=== PATIENT | female | born 1975 | race African-American/Black ===

== ENCOUNTER 2021-06-11 15:59 | Outpatient (REF) | payer MEDICAID, SELFPAY ==
--- NOTE | ~2021-06-11 | XR_ITS ---
EXAMINATION: XR SHOULDER, LEFT CLINICAL INFORMATION: Pain in the left shoulder COMPARISON: None TECHNIQUE: AP external rotation, Grashey, scapular Y, and axillary views of the left shoulder. FINDINGS: The bones and soft tissues are normal. No fracture. Glenohumeral and acromioclavicular alignment is anatomic with normal joint space. No abnormal soft tissue calcifications. XR/XR shoulder LT min 2V IMPRESSION: Normal left shoulder.
== END 2021-06-11 16:00 | disposition home or self-care (01) ==
LOC: HO.XRAY 15:59
PROVIDERS: PCP Registered Nurse Community Health; Visit Provider Registered Nurse Community Health
DX: M25.512 Pain in left shoulder (principal)
CPT/HCPCS: 73030

== ENCOUNTER 2021-07-19 11:06 | Outpatient (REF) | payer MEDICAID, SELFPAY ==
--- NOTE | ~2021-07-19 | MM_ITS ---
EXAMINATION: MM SCREENING DIGITAL BREAST TOMOSYNTHESIS, BILATERAL CLINICAL INFORMATION: Screening. Asymptomatic. The lifetime risk of breast cancer based on the Tyrer-Cuzick Model is 8%. COMPARISON: Mammography: 12/12/2019, 12/06/2018, 09/07/2017 TECHNIQUE: Digital breast tomosynthesis is performed in both the craniocaudal and mediolateral oblique views along with computer-aided detection (CAD). Synthesized 2D images are generated from the tomosynthesis. Additional left exaggerated CC and right MLO views are provided. FINDINGS: There are scattered areas of fibroglandular density (ACR BI-RADS breast composition Category b). There are no significant masses, abnormal calcifications, or other abnormalities. Parenchymal pattern is similar to prior studies. There is no developing density or architectural abnormality. The axilla and skin contours are unremarkable. No significant changes. MM/MM tomosynthesis screening BI IMPRESSION: No mammographic evidence of malignancy. ASSESSMENT: BI-RADS 1: Negative RECOMMENDATION: Routine annual mammography screening. This patient's information was entered into a reminder system with a target due date for their next mammogram.
== END 2021-07-19 11:07 | disposition home or self-care (01) ==
LOC: HO.MAMMO 11:06
PROVIDERS: PCP Registered Nurse Community Health; Visit Provider Registered Nurse Community Health
DX: Z12.31 Encounter for screening mammogram for malignant neoplasm of breast (principal)
CPT/HCPCS: 77063; 77067

== ENCOUNTER 2021-08-25 14:00 | Outpatient (RCR) | payer OTHER, SELFPAY | END 2021-09-16 10:16 | disposition home or self-care (01) | LOC: HO.PT 14:00 | PROVIDERS: PCP Registered Nurse Community Health; Visit Provider Registered Nurse Community Health | DX: M25.512 Pain in left shoulder (principal) | CPT/HCPCS: 97110; 97140; 97161 ==

== ENCOUNTER 2021-10-15 10:47 | Outpatient (REF) | payer OTHER, MEDICAID, SELFPAY ==
--- NOTE | ~2021-10-15 | MR_ITS ---
EXAMINATION: MRI LEFT SHOULDER WITHOUT CONTRAST CLINICAL INFORMATION: [facility] – [place]. COMPARISON: X-ray the left shoulder May 2021. TECHNIQUE: MRI of the left shoulder was performed on a high-field 1.5 Janey MRI scanner. FINDINGS: ROTATOR CUFF: Normal. BICEPS TENDON: Normal. CORACOACROMIAL ARCH: Normal. BURSA: Trace fluid in the subacromial subdeltoid bursa. LABRUM/CAPSULE: Normal. GLENOHUMERAL JOINT: Articular cartilage is normal. No effusion. Minimal enthesopathic cyst in the lesser tuberosity. MR/MR shoulder LT wo con IMPRESSION: Trace fluid in the subacromial subdeltoid bursa compatible with a mild bursitis.
== END 2021-10-15 10:48 | disposition home or self-care (01) ==
LOC: HO.MRI 10:47
PROVIDERS: Visit Provider Registered Nurse Community Health
DX: M25.512 Pain in left shoulder (principal)
CPT/HCPCS: 73221

== ENCOUNTER 2021-11-17 13:00 | Outpatient (RCR) | payer OTHER, MEDICAID, SELFPAY | END 2021-12-07 09:47 | disposition home or self-care (01) | LOC: HO.PT 13:00 | PROVIDERS: Visit Provider Registered Nurse Community Health | DX: M25.512 Pain in left shoulder (principal) | CPT/HCPCS: 97110; 97140; 97161 ==

== ENCOUNTER 2021-11-24 07:19 | Outpatient (REF) | payer OTHER, MEDICAID, SELFPAY ==
--- NOTE | ~2021-11-24 | XR_ITS ---
EXAMINATION: XR SHOULDER, LEFT CLINICAL INFORMATION: Pain left shoulder. COMPARISON: None TECHNIQUE: AP external rotation, Grashey, scapular Y, and axillary views of the left shoulder. FINDINGS: There is mild reduction in the left AC joint space. The glenohumeral joint space is normal. There is no visible acute fracture, dislocation or bony erosive changes. The soft tissues are normal. XR/XR shoulder LT min 2V IMPRESSION: Mild degenerative changes left acromioclavicular joint and glenohumeral joint.
== END 2021-11-24 07:20 | disposition home or self-care (01) ==
LOC: HO.HOSX 07:19
PROVIDERS: Visit Provider Physician Assistant
DX: M75.82 Other shoulder lesions, left shoulder (principal)
CPT/HCPCS: 20610; 73030; 99202; J1040

== ENCOUNTER 2021-12-14 11:48 | Emergency (ER) | payer OTHER, SELFPAY ==
[2021-12-14 11:55] VITALS: BP 142/76; PULSE 82; RESP 18; TEMP 36.8; O2SAT 98; BMI 28.3
--- NOTE | 2021-12-14 12:00 | ED_ITS ---
HPI - Extremity Problem General Chief complaint: Extremity Problem Stated complaint: extreme pain in shoulders Time Seen by Provider: 12/14/21 11:50 Source: patient Mode of arrival: ambulatory Limitations: language barrier History of Present Illness HPI Narrative: 46-year-old female with a known left-sided tendinitis of the shoulder and bursitis here with pain in the left shoulder which is described as intermittent and sometimes radiates up her neck worsened since May but >years after a work injury. Her pain comes with sleeping on her left side, lifting and movement of her arm. Has a tingling sensation that goes down her arm. Patient has been seen by Orthopedics and had and cortisone injection on November 24. She had an MRI September 2021 which showed bursitis. Continued pain which was aggravated today by h anging up clothes at work. Takes motrin/tylenol PRN. This week has taken medication twice. None today. Waiting for orthopedics to call her back. Related Data Home Medications Medication Instructions Recorded Confirmed diclofenac sodium 1 % topical gel 2 g topical QID 11/24/21 Previous Rx's Medication Instructions Recorded ibuprofen 600 mg tablet 600 mg PO Q8H PRN pain #30 tabs 12/14/21 Allergies Allergy/AdvReac Type Severity Reaction Status Date / Time No Known Allergies Allergy Unverified 11/24/21 10:12 [No Known Allergies*] Review of Systems Review of Systems: Yes all other systems are reviewed and are negative Constitutional: Constitutional: Reports no additional constitutional complaints, Denies body ache(s), Denies chills, Denies fever(s), Denies headache(s) and Denies weakness Eyes: Eyes: Reports no additional eye complaints and Denies change in vision ENT: Reports system reviewed and no additional complaints, except as documented, Denies dizziness, Denies headache(s), Denies nasal congestion, Denies nasal discharge and Denies neck pain Cardiovascular: Cardiovascular: Reports no additional cardiovascular complaints, Denies chest pain, Denies leg edema and Denies dyspnea Respiratory: Respiratory: Reports no additional respiratory complaints, Denies cough and Denies dyspnea Gastrointestinal: Gastrointestinal: Reports no additional gastrointestinal complaints, Denies abdominal pain, Denies diarrhea, Denies nausea and Denies vomiting Genitourinary: Genitourinary: Reports no additional female genitourinary complaints and Denies urinary incontinence Musculoskeletal: Musculoskeletal: Reports no additional musculoskeletal complaints, Denies back pain, Reports arthralgias, Denies joint swelling, Reports limited range of motion, Denies neck pain, Denies numbness and Denies tingling Integumentary/Breasts: Skin/Breast: Reports system reviewed and no additional complaints, except as docu and Denies rash Neurologic: Reports system reviewed and no additional complaints, except as documented, Denies Abnormal speech present, Denies dizziness, Denies headache(s ), Denies numbness, Denies tingling and Denies weakness PMFSH Past Medical History Attestation statement: The following information was validated with the patient. Source: old records reviewed and nursing notes reviewed Surgical History H/O tubal ligation Social History Social History Patient Tobacco Use Status: Never used Tobacco Advance Directives: No Advance Directives Information Provided: No Current occupational status: employed Current occupation: [employer], rt hand Physical Exam Vital Signs: Vital Signs: Last Vital Signs Temp 98.2 F 12/14/21 11:55 Pulse 88 12/14/21 12:20 Resp 16 12/14/21 12:20 BP 142/90 H 12/14/21 12:20 Pulse Ox 97 12/14/21 12:20 O2 Del Method 12/14/21 12:20 BMI result Body Mass Index 28.3 Const: General: cooperative, healthy appearing, comfortable and no acute distress Orientation/consciousness: patient oriented x3 Limitations: no limitations HEENT: Head: Yes normal to inspection Ears: hearing grossly normal bilaterally Eyes: General: appearance normal, both eyes and all related structures Pupils: Equal, round and reactive pupils present Neck: Neck: Yes normal visual inspection Chest: Chest palpation & inspection: normal inspection of the chest Resp: Effort & Inspection: normal respiratory effort Cardio: Peripheral pulses: Peripheral pulses 2+ throughout Skin: General skin exam: no rashes or lesions noted Neuro: General: patient oriented x3, moves all extremities, no focal motor deficits and normal sensation to monofilament Cranial nerves: Yes Equal, round and reactive pupils present Cognition (Neuro): normal cognition Speech: No Abnormal speech present Gait exam (Neuro): Normal gait present Motor exam (neuro): 5/5 motor strength present throughout Sensory Exam: Normal double simultaneous stimulation for sensation Extrem: Other: Left shoulder normal to inspection. Tenderness over the bicipital groove and along the trapezium muscle into the lateral side of the neck. 5/5 LUE strength, positive Gale, Pain worsened with abduction of the limb General: Yes normal to inspection MDM - Extremity (Nontraumatic) MDM Narrative Medical decision making narrative: 46-year-old female here with acute on chronic left shoulder pain after lifting and hanging clothes today at work. Patient had recent MRI, cortisone injection but having continued pain. Waiting for call back from Orthopedics. No new injury or trauma. No need for new x-rays today. Patient is only requiring NSAID use twice in 1 week. I recommend she increase use to up to 3 times daily as needed. Recommended continue use ice and follow with Orthopedics. Reviewed worrisome signs and symptoms of when to return to the emergency department. Comfortable discharge home. Medical Records Attestation: I reviewed the patient's medical records. Lab Data Attestation: I reviewed the patient's lab results. Discharge Plan Discharge Clinical Impression: Tendonitis of left rotator cuff Patient Disposition: Home, Self-Care Instructions: Rotator Cuff Tendinitis (ED) Additional Instructions: Ice to the area gentle stretching No heavy lifting or bending Follow-up with orthopedics Prescriptions: New ibuprofen 600 mg tablet 600 mg PO Q8H PRN (Reason: pain) Qty: 30 0RF No Action diclofenac sodium 1 % gel 2 g topical QID Referrals: [facility] [Primary Care Provider] - 1 week Stand Alone Forms: Work/School Release Interventions: ED Discharge Assessment Last Done: 12/14/21 12:50 Discharge Date/Time: 12/14/21 12:50 Print Language: Congolese
[2021-12-14 12:20] VITALS: BP 142/90; PULSE 88; RESP 16; O2SAT 97
[2021-12-14] MEDS: Ibuprofen 600 MG TABLET PO (12:44)
== END 2021-12-14 12:50 | disposition home or self-care (01) ==
PROVIDERS: Emergency Provider Emergency Medicine
DX: M75.102 Unspecified rotator cuff tear or rupture of left shoulder, not specified as traumatic (principal)
CPT/HCPCS: 99283; 99284

== ENCOUNTER → 2021-12-20 12:12 | Outpatient (BNVA) | payer OTHER, SELFPAY | PROVIDERS: Visit Provider Orthopaedic Surgery | DX: M75.42 Impingement syndrome of left shoulder (principal) | CPT/HCPCS: 99212 ==

== ENCOUNTER → 2022-01-31 10:11 | Outpatient (BNVA) | payer OTHER, SELFPAY | PROVIDERS: Visit Provider Orthopaedic Surgery | DX: M75.82 Other shoulder lesions, left shoulder (principal) | CPT/HCPCS: 99212 ==

== ENCOUNTER → 2022-03-17 08:44 | Outpatient (BNVA) | payer OTHER, SELFPAY | PROVIDERS: Visit Provider Orthopaedic Surgery | DX: M75.42 Impingement syndrome of left shoulder (principal) | CPT/HCPCS: 99212 ==

== ENCOUNTER → 2022-04-14 10:15 | Outpatient (BNVA) | payer MEDICAID, SELFPAY | PROVIDERS: Visit Provider Orthopaedic Surgery | DX: M25.512 Pain in left shoulder (principal); M75.42 Impingement syndrome of left shoulder | CPT/HCPCS: 99212 ==

== ENCOUNTER 2022-05-24 11:26 | Outpatient (REF) | payer MEDICAID, SELFPAY | END 2022-05-24 11:27 | disposition home or self-care (01) | LOC: HO.LNP 11:26 | PROVIDERS: PCP Registered Nurse; Visit Provider Obstetrics & Gynecology | DX: N88.9 Noninflammatory disorder of cervix uteri, unspecified (principal); Z32.02 Encounter for pregnancy test, result negative | CPT/HCPCS: 57500; 81025; 88300; 88305; 99202 ==

== ENCOUNTER 2022-06-29 12:54 | Outpatient (REF) | payer MEDICAID, SELFPAY ==
[2022-06-29 14:16] LABS: Hematocrit 39.2 % (37.0-47.0); Hemoglobin 12.4 g/dl (12.0-16.0); Mean Corpuscular HGB Conc 31.6 g/dl (31.0-35.0); Mean Corpuscular Hemoglobin 26.4 pg (27.0-33.0); Mean Corpuscular Volume 83.4 fL (80.0-98.0); Mean Platelet Volume 10.9 fL (9.4-12.3); Platelet Count 169 X10*3/uL (160-400); Red Cell Distribution Width 14.8 % (11.0-16.0); White Blood Count 4.8 X10*3/uL (4.8-10.8)
[2022-06-29 14:52] LABS: HCG Quantitative < 2 mIU/mL; TSH reflex Free T4 1.09 uIU/mL (0.32-4.0)
== END 2022-06-29 12:55 | disposition home or self-care (01) ==
LOC: HO.LAB 12:54
PROVIDERS: PCP Registered Nurse; Visit Provider Obstetrics & Gynecology
DX: N88.9 Noninflammatory disorder of cervix uteri, unspecified (principal); D25.9 Leiomyoma of uterus, unspecified; N92.0 Excessive and frequent menstruation with regular cycle
CPT/HCPCS: 36415; 84443; 84702; 85027; 99212

== ENCOUNTER 2022-07-06 09:33 | Outpatient (REF) | payer MEDICAID, SELFPAY ==
--- NOTE | ~2022-07-06 | MR_ITS ---
EXAMINATION: MR CERVICAL SPINE WITHOUT CONTRAST CLINICAL INFORMATION: Left upper arm pain COMPARISON: None TECHNIQUE: MRI of the cervical spine was obtained using routine sequences without contrast. FINDINGS: Normal anatomic alignment. No suspicious marrow signal or focal osseous lesion. The vertebral body heights are maintained. The intervertebral discs are of normal height and signal. The cervical spinal cord is normal in caliber and signal Limited evaluation of the soft tissues of the neck without demonstrated abnormalities. The flow voids of the major cervical vessels are maintained. Normal appearance of the cervicomedullary junction and visualized posterior fossa SPINAL LEVELS: C2-C3: No significant spinal canal or neural foraminal narrowing C3-C4: No significant spinal canal or neural foraminal narrowing C4-C5: Small disc protrusion. No significant spinal canal or neural foraminal narrowing C5-C6: Small disc protrusion. No significant spinal canal or neural foraminal narrowing C6-C7: No significant spinal canal or neural foraminal narrowing C7-T1: Normal. MR/MR cervical spine wo con IMPRESSION: Minimal degenerative changes of the cervical spine. No significant spinal canal or neural foraminal stenosis, cord compression, or cord signal abnormality.
== END 2022-07-06 09:34 | disposition home or self-care (01) ==
LOC: HO.MRI 09:33
PROVIDERS: PCP Registered Nurse; Visit Provider Orthopaedic Surgery
DX: M79.622 Pain in left upper arm (principal)
CPT/HCPCS: 72141

== ENCOUNTER 2022-07-15 10:58 | Outpatient (REF) | payer MEDICAID, SELFPAY ==
--- NOTE | ~2022-07-15 | US_ITS ---
EXAMINATION: US PELVIS CLINICAL INFORMATION: Uterine leiomyoma. COMPARISON: CT of the abdomen and pelvis 04/22/2019, pelvic ultrasound 04/22/2019. TECHNIQUE: Ultrasound of the pelvis is performed using both transabdominal and transvaginal transducers along with Doppler. Transvaginal imaging is performed due to inadequate visualization transabdominally. FINDINGS: UTERUS: The uterus is anteverted and retroflexed measuring 8.9 x 5.1 x 6.0 cm. The double wall endometrial thickness is 0.6 mm. A tiny amount of fluid is seen in the endometrial canal along with at least one punctate 1 mm echogenic area suggestive of calcification. At the time of the prior ultrasound, a 9 mm polypoid mass was noted in the endometrial canal which is not seen. The uterus is smooth in contour and has normal myometrial echogenicity. Again seen is a uterine fibroid in the left in the lower uterine segment measuring 4.2 x 3.5 x 4.1 cm (previously 3.4 x 2.8 x 3.4 cm). Nabothian cysts are present in the cervix. ADNEXA: Both ovaries are visualized. There is normal color flow to the adnexa. There is no ovarian torsion. There is no pelvic ascites or fluid collection. Right ovary measures 2.7 x 1.7 x 1.2 cm for a volume of 2.9 mL. Left ovary measures 2.7 x 1.6 x 1.4 cm for a volume of 3.2 mL, which includes a 0.9 cm corpus luteum cyst. A small amount of free fluid is present in the pelvis. US/US pelvic and transvaginal IMPRESSION: Uterine fibroid has increased in size. Small amount of fluid in the endometrial canal with a single punctate calcification. Previously seen endometrial polyp is not identified.
== END 2022-07-15 10:59 | disposition home or self-care (01) ==
LOC: HO.US 10:58
PROVIDERS: Visit Provider Obstetrics & Gynecology
DX: D25.9 Leiomyoma of uterus, unspecified (principal)
CPT/HCPCS: 76830; 76856

== ENCOUNTER 2022-07-25 08:56 | Outpatient (REF) | payer MEDICAID, SELFPAY ==
--- NOTE | ~2022-07-25 | MM_ITS ---
EXAMINATION: MM SCREENING DIGITAL BREAST TOMOSYNTHESIS, BILATERAL CLINICAL INFORMATION: Screening. Asymptomatic. The lifetime risk of breast cancer based on the Tyrer-Cuzick Model is 7%. COMPARISON: Mammography: 07/19/2021, 12/12/2019, 12/06/2018 TECHNIQUE: Digital breast tomosynthesis is performed in both the craniocaudal and mediolateral oblique views along with computer-aided detection (CAD). Synthesized 2D images are generated from the tomosynthesis. FINDINGS: There are scattered areas of fibroglandular density (ACR BI-RADS breast composition Category b). There are no significant masses, abnormal calcifications, or other abnormalities. No architectural abnormality or developing density or significant change from prior studies. MM/MM tomosynthesis screening BI IMPRESSION: No mammographic evidence of malignancy. ASSESSMENT: BI-RADS 1: Negative RECOMMENDATION: Routine annual mammography screening. This patient's information was entered into a reminder system with a target due date for their next mammogram.
== END 2022-07-25 08:57 | disposition home or self-care (01) ==
LOC: HO.MAMMO 08:56
PROVIDERS: PCP Registered Nurse Community Health; Visit Provider Registered Nurse Community Health
DX: Z12.31 Encounter for screening mammogram for malignant neoplasm of breast (principal); M25.512 Pain in left shoulder; M75.42 Impingement syndrome of left shoulder
CPT/HCPCS: 77063; 77067; 99212

== ENCOUNTER 2022-09-06 11:40 | Outpatient (REF) | payer MEDICAID, SELFPAY ==
[2022-09-06 18:40] LABS: CT PCR NOT DETECTED (Not Detect.); NG PCR NOT DETECTED (Not Detect.)
== END 2022-09-06 11:41 | disposition home or self-care (01) ==
LOC: HO.LNP 11:40
PROVIDERS: PCP Registered Nurse; Visit Provider Obstetrics & Gynecology
DX: N93.9 Abnormal uterine and vaginal bleeding, unspecified (principal)
CPT/HCPCS: 0353U; 58100; 88305; 99212

== ENCOUNTER → 2022-09-14 12:39 | Outpatient (BNVA) | payer MEDICAID, SELFPAY | PROVIDERS: PCP Registered Nurse; Visit Provider Obstetrics & Gynecology | DX: N93.9 Abnormal uterine and vaginal bleeding, unspecified (principal); D25.9 Leiomyoma of uterus, unspecified | CPT/HCPCS: 99212 ==

== ENCOUNTER 2022-09-16 12:18 | Day surgery (SDC) | payer MEDICAID, SELFPAY ==
--- NOTE | 2022-09-15 12:02 | HO.ANESPROP2 ---
HPI - Anesthesia Eval Consult details Narrative: 47yo F for D&C Hysteroscopy , possible myomectomy/polypectomy PMFSH Active Problems Active Problems: All Active Problems (Updated 09/14/22 @ 12:54 by Yogi Nelson MD) Other chronic pain (Acute) Abnormal uterine bleeding (AUB) (Acute) Uterine myoma (Acute) Left upper arm pain (Acute) Cervical lesion (Acute) Left shoulder pain (Acute) Rotator cuff impingement syndrome of left shoulder (Acute) Tendonitis of left rotator cuff (Acute) Surgical History Surgical History H/O tubal ligation Social History Social History Household Members: Spouse and Children Housing: House Alcohol intake: never Patient Tobacco Use Status: Never used Tobacco service: No Current occupational status: employed Current occupation: [employer], rt hand Sexual orientation: Straight/Heterosexual Gender identity: Female Meds Allergies Allergy/AdvReac Type Severity Reaction Status Date / Time No Known Allergies Allergy Verified 09/16/22 12:29 [No Known Allergies*] Home Medications Medication Instructions Recorded Confirmed Last Taken Type diclofenac sodium 1 % topical gel 2 g topical QID 11/24/21 09/16/22 Unknown History Tylenol 09/16/22 09/16/22 Unknown History Exam Exam Date and Time: September 15, 2022 1202 Assessment and Plan Assessment Anesthesia Assessment: Chart Reviewed
[2022-09-16 12:43] LABS: UPreg QC Valid YES; Urine Pregnancy NEGATIVE (NEGATIVE)
[2022-09-16 12:45] VITALS: BP 133/81; PULSE 90; RESP 16; TEMP 36.4; O2SAT 100; BMI 29.9
--- NOTE | 2022-09-16 12:52 | P.CONAN_ITS ---
[facility] Active Problems Active Problems: All Active Problems (Updated 09/14/22 @ 12:54 by Yogi Nelson MD) Other chronic pain (Acute) Abnormal uterine bleeding (AUB) (Acute) Uterine myoma (Acute) Left upper arm pain (Acute) Cervical lesion (Acute) Left shoulder pain (Acute) Rotator cuff impingement syndrome of left shoulder (Acute) Tendonitis of left rotator cuff (Acute) Family History Family history of problems with anesthesia: No Surgical History Surgical History H/O tubal ligation History of Problems with Anesthesia: No Social History Social History Household Members: Spouse and Children Housing: House Alcohol intake: never Patient Tobacco Use Status: Never used Tobacco Use of substances other than those prescribed or required for medical reasons: No Are you DNR?: No Advance Directives: No Advance Directives Information Provided: Yes service: No Current occupational status: employed Current occupation: [employer], rt hand Sexual orientation: Straight/Heterosexual Gender identity: Female Meds Allergies Allergy/AdvReac Type Severity Reaction Status Date / Time No Known Allergies Allergy Verified 09/16/22 12:29 [No Known Allergies*] Active Medications: Current Medications Lactated Ringer's (Lr) 1,000 mls @ 100 mls/hr IVCONT .Q10H [facility] Home Medications Medication Instructions Recorded Confirmed Last Taken Type diclofenac sodium 1 % topical gel 2 g topical QID 11/24/21 Unknown History Tylenol 09/16/22 09/16/22 Unknown History Exam Exam Date and Time: September 16, 2022 125 Height,Weight and Vital Signs: Height 5 ft 4 in Weight 67.132 kg Last Vital Signs Temp 97.6 F 09/16/22 12:45 Pulse 90 09/16/22 12:45 Resp 16 09/16/22 12:45 BP 133/81 09/16/22 12:45 Pulse Ox 100 09/16/22 12:45 O2 Del Method Room Air 09/16/22 12:45 Pertinent Lab Results Pertinent Lab Results: Laboratory Tests 09/16/22 12:30 Urine Test NEGATIVE Airway Mallampati Class: II TM Dist: >3cm Neck ROM: Full Assessment and Plan Assessment Anesthesia Assessment: Anesthesia Plan Discussed and Chart Reviewed Final Anesthetic Review Family History of Problems with Anesthesia: No History of Problems with Anesthesia: No NPO: Yes ASA Class: II Final Preanesthetic Review: No Changes in Pt Med Stat, Meds/Allgs Chart Revie wed, Consent Obtained/Reviewed and Anes Risks/Benef Reviewed Patient Risk: Low Procedure Risk: Low Anesthetic Plan Anesthetic Plan: GA Disposition: Standard PACU
[2022-09-16] MEDS: Lactated Ringers 1,000 ML 100 ML IVCONT (13:01)
--- NOTE | 2022-09-16 13:14 | MHC.SHP ---
Pre-Procedural Eval Section A Date of Service: 09/16/22 The patient is an INPATIENT: No Changes since office visit: No Cold of Flu in the past 2 weeks, No New Medical Problems, No Changes in Medication and No Patient answered all questions The History & Physical has been completed within 30 days and I have reviewed it.: Yes Section B Chief Complaint: Abnormal uterine and vaginal bleeding, unspecified Allergies: Allergies Allergy/AdvReac Type Severity Reaction Status Date / Time No Known Allergies Allergy Verified 09/16/22 12:29 [No Known Allergies*] Plan Diagnosis/Plan: Unchanged I have reviewed the history and physical and performed a pertinent physical examination on my patient. No changes have occurred unless specified. Time Spent With Patient Time: Total time managing care of this patient today ____ minutes.
--- NOTE | 2022-09-16 13:55 | P.BOP_ITS ---
Brief Operative Note Date of Service: 09/16/22 Pre-op diagnosis: Fragment of Endometrial polyp on EMB pathology Post-op diagnosis: other (Normal endometrial cavity with no evidence of pathology) Procedure: Hysteroscopy D&C Surgeon: Yogi Nelson MD Anesthesia: GLMA Was an Salesperson Neckties used for this Procedure?: No Estimated blood loss (mL): 0 Pathology: other (Endometrial Scrapping.) Condition: stable Disposition: PACU
--- NOTE | 2022-09-16 13:56 | W.PM.OPN ---
Operative Note Operative Note Date of Service: 09/16/22 Narrative: Preop Diagnosis: Fragments of endometrial polyp on EMB pathology Operation: Diagnostic Hysteroscopy, Dilataion & Curettage Post Op Diagnosis: Normal endometrial and endocervical cavity, no evidence of pathology QBL: Minimal Anesthesia: GLMA Surgeon: Yogi Nelson MD Timber Harvester Operator: None Complication: None Pathology: Endometrial Scrapings Procedure: The patient was put in the dorsal lithotomy position, scrubbed, and draped in the usual manner. A sterile speculum was inserted in the patient's vagina. The anterior lip of the cervix was grasped with a single tooth tenaculum. The cervix was dilated up to 5 mm, then the scope was inserted in the patient's uterus. Inspection revealed normal endocervical & endometrial cavity with no evidence of pathology. The scope was taken out of the uterine cavity , then sharp curetting was carried on with no complications. At the end of the procedure, all instruments were taken out of the patient uterine and vaginal cavity. The single tooth tenaculum was removed and homeostasis was assured using pressure. The patient tolerated the procedure well and was transferred to the PACU in a stable condition.
[2022-09-16 14:01] VITALS: BP 131/82; PULSE 105; RESP 20; TEMP 36.4; O2SAT 98
[2022-09-16 14:06] VITALS: BP 131/62; PULSE 90; RESP 20; O2SAT 100
[2022-09-16 14:11] VITALS: BP 119/72; PULSE 96; RESP 20; O2SAT 98
[2022-09-16 14:16] VITALS: BP 121/81; PULSE 85; RESP 16; O2SAT 100
[2022-09-16] MEDS: Acetaminophen 325 MG TABLET 650 MG PO (14:26)
[2022-09-16 14:31] VITALS: BP 125/79; PULSE 86; RESP 18; TEMP 36.2; O2SAT 100
== END 2022-09-16 15:07 | disposition home or self-care (01) ==
PROVIDERS: Visit Provider Obstetrics & Gynecology
PROC: 0UDB8ZZ Extraction of Endometrium, Via Natural or Artificial Opening Endoscopic (ICD-10-PCS; CPT 58558; principal; 2022-09-16 14:20)
DX: N93.9 Abnormal uterine and vaginal bleeding, unspecified (principal); D25.9 Leiomyoma of uterus, unspecified; N71.9 Inflammatory disease of uterus, unspecified; Z98.51 Tubal ligation status
CPT/HCPCS: 58558; 81025; 88305; J1100; J1885; J2250; J2405; J3010

== ENCOUNTER → 2022-10-05 13:49 | Outpatient (BNVA) | payer MEDICAID, SELFPAY | PROVIDERS: Visit Provider Obstetrics & Gynecology | DX: N93.9 Abnormal uterine and vaginal bleeding, unspecified (principal) | CPT/HCPCS: 99212 ==

== ENCOUNTER → 2022-10-19 11:52 | Outpatient (BNVA) | payer MEDICAID, SELFPAY | PROVIDERS: Visit Provider Nurse Practitioner Family | DX: Z12.11 Encounter for screening for malignant neoplasm of colon (principal) | CPT/HCPCS: 99202 ==

== ENCOUNTER 2022-11-11 13:00 | Outpatient (RCR) | payer MEDICAID, SELFPAY ==
--- NOTE | 2022-09-26 13:56 | MHC.PT.EP ---
[facility] [place] Office [place] Office [place] Office [address] Ofelia Tristan [address] [phone] F: [phone] F: [phone] F: [phone] F: [phone] Physical Therapy Plan of Care Date of Evaluation: Date of Surgery: NA Diagnosis: Pain in L shoulder Assessment: Angela is a 47 year old female who is referred to PT for pain in L shoulder . She reports of having pain in L shoulder for about 2 years. She had an initial trauma about 5 years back but her symptoms were better. They returned about 2 years back and she was in PT 1 year back with min improvement. She has returned to PT as her symptoms are worse. On PT examination she presents with 8/10 pain in over L supraspinous fossa with over head activities and work activities like folding clothes and stocking them, TTP over L supraspinous fossa, decreased shoulder ROM, decreased shoulder and scap strength, and altered posture.She lives with her family and is independent with ADLS however has pain with sweeping, combing hair with L UE and reaching over head. 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 She would benefit from skilled PT to address the aforementioned impairments and improve tolerance to functional activities. Frequency and Duration: The patient will be seen 2/week for 4 weeks Short Term Goals: 1. Pt will have 50% decrease in pain which will enable her to comb her hair without pain in 2 weeks. 2. Pt will be able to move trunk through all planes of motion without pain which will enable her to reach over head without pain in 3 weeks. Senior Living Goals: 1. Pt will present with increase in muscle strength by 1 grade which will enable her to carry and lift weights and fold clothes without pain in 5 weeks. 2. Pt will be independent with all HEP for symptom management and maintenance following d/c in 5 weeks. Treatment Plan: Modalities to reduce pain, spasms and effusion. Manual therapy to restore motion and function. Therapeutic exercise to improve strength and flexibility. Neuromuscular re-education for posture and balance. Therapeutic activities to return to functional activities of daily living. Electronically signed by: Emeli Cole, PT DPT Please sign and return to therapist. Thank you for your referral.
--- NOTE | 2022-11-23 09:39 | MHC.PT.DC ---
[facility] [place] Office [place] Office [place] Office [address] Ofelia Tristan [address] [phone] F: [phone] F: [phone] F: [phone] F: [phone] Physical Therapy Discharge Report Diagnosis: Pain in L shoulder Date of Surgery: NA Date of Evaluation: 09/26/22 Date of Discharge: 11/23/22 Treatments to Date: 9 Cancellations to Date: 0 No Shows to Date: 0 Discharge Status: Achieved Goals Improved Function Independent with HEP Discharge Summary: Angela completed 9 PT visits. She has achieved all goals set for her and is independent with HEP. She is therefore being d/c from PT. Electronically signed by: Emeli Galvan PT DPT Please sign and return to therapist. Thank you for your referral.
== END 2022-11-23 09:40 | disposition home or self-care (01) ==
LOC: HO.PT 13:00
PROVIDERS: PCP Registered Nurse; Visit Provider Orthopaedic Surgery
DX: M25.512 Pain in left shoulder (principal)
CPT/HCPCS: 97035; 97110; 97112; 97140; 97161

== ENCOUNTER 2023-07-31 09:38 | Emergency (ER) | payer MEDICAID, SELFPAY ==
[2023-07-31 09:49] VITALS: BP 161/86; PULSE 81; RESP 18; TEMP 36.3; O2SAT 98; BMI 31.7
--- NOTE | 2023-07-31 10:30 | PC.NURSE ---
Pt is a&ox4 coming in with right side hip pain that started last night, denies injury or fall. Pt limping to bedside.
--- NOTE | 2023-07-31 11:04 | ED_ITS ---
HPI - Extremity Injury (Lower) General Chief Complaint: Extremity Injury, Lower Stated Complaint: R leg pain-nerve pain? Time Seen by Provider: 07/31/23 10:35 Source: patient, RN notes reviewed and old records reviewed Mode of arrival: ambulatory History of Present Illness HPI Narrative: 48-year-old female with a past medical history of abnormal uterine bleeding, tendinitis, presenting to the ED complaining of right upper leg/inner thigh pain since yesterday. Reports pain worse with movement and palpation. Denies known injury/trauma or fall, heavy lifting, numbness/tingling, weakness, continence/retention, hematuria, vaginal bleeding/discharge, abdominal pain Related Data Home Medications Medication Instructions Recorded Confirmed Tylenol 09/16/22 09/16/22 Previous Rx's Medication Instructions Recorded bisacodyl 5 mg tablet,delayed 10 mg (2 x 5 mg) PO ONCE 1 day #2 10/19/22 release (Dulcolax (bisacodyl)) tabs polyethylene glycol 3350 17 238 g PO ONCE #238 grams 10/19/22 gram/dose oral powder (Miralax) acetaminophen 500 mg tablet 500 mg PO Q6H PRN fever or pain 07/31/23 (Tylenol Extra Strength) #14 tabs cyclobenzaprine 5 mg tablet 5 mg PO Q8H PRN pain (scale score 07/31/23 7-10) 5 days #14 tabs lidocaine 5 % topical patch 1 patch topical DAILY PRN pain #30 07/31/23 (Lidoderm) ea naproxen 500 mg tablet 500 mg PO BID PRN pain 10 days #20 07/31/23 tabs Allergies Allergy/AdvReac Type Severity Reaction Status Date / Time No Known Allergies Allergy Verified 07/31/23 09:51 [No Known Allergies*] Review of Systems Review of Systems: Constitutional: No Fever, No Chills ENT/Mouth: No Ear Pain, No Nasal Congestion, No sore throat Cardiovascular: No Chest Pain, No SOB Respiratory: No Cough Gastrointestinal: No Nausea, No Vomiting, No Abdominal pain Genitourinary: No Dysuria, No Urinary Frequency, No Hematuria, No Urinary Incontinence/retention, No Flank Pain Musculoskeletal:+ joint pain, No Myalgias, No Joint Swelling Skin: No Skin Lesions, No rash Neuro: No Weakness, No Numbness, No Paresthesias Yes all other systems are reviewed and are negative Constitutional: Constitutional: Reports as per [facility] Past Medical History Attestation statement: The following information was validated with the patient. Source: old records reviewed Medical History History of thrombocytopenia Abnormal uterine bleeding (AUB) Left shoulder pain Rotator cuff impingement syndrome of left shoulder Tendonitis of left rotator cuff Surgical History H/O tubal ligation Social History Social History Household Members: Spouse and Children Housing: House Alcohol intake: never Patient Tobacco Use Status: Never used Tobacco Smoked in Last 30 Days: No Use of substances other than those prescribed or required for medical reasons: No Advance Directives: No Patient : No service: No Current occupational status: employed Current occupation: [employer], rt hand Sexual orientation: Straight/Heterosexual Gender identity: Female Physical Exam Vital Signs: Vital Signs: Last Vital Signs Temp 97.3 F 07/31/23 09:49 Pulse 81 07/31/23 09:49 Resp 18 07/31/23 09:49 BP 161/86 H 07/31/23 09:49 Pulse Ox 98 07/31/23 09:49 O2 Del Method Room Air 07/31/23 09:49 BMI result Body Mass Index 31.7 Const: General: cooperative, healthy appearing, no acute distress, alert and awake Orientation/consciousness: patient oriented x3 Limitations: no limitations HEENT: Head: Yes normal to inspection and Yes atraumatic Ears: hearing grossly normal bilaterally General nose exam: Normal external nose present Face and sinus: Yes normal facial exam Eyes: General: appearance normal, both eyes and all related structures EOM: EOMs intact bilaterally Neck: Neck: Yes normal visual inspection and Yes no meningeal signs Resp: Effort & Inspection: normal respiratory effort and no respiratory distress Cardio: Rate: regular rate GI: Inspection: Yes normal to inspection Palpation (GI): Soft to palpation, nontender, no guarding and not rigid : General: Yes no CVA tenderness Back/Spine/Pelvis: Other: No midline cervical/thoracic/lumbar spinous tenderness/step-off or deformity. Back: no CVA tenderness Skin: Rashes: no rashes Wounds: no wounds Neuro: Other: Strength intact throughout. No saddle anesthesia. Sensation intact to light touch. Neurovascular intact distally General: patient oriented x3, tone normal, moves all extremities and no meningeal signs Cranial nerves: Yes CN's II-XII intact bilaterally Gait exam (Neuro): Normal gait present and Antalgic gait present Motor exam (neuro): 5/5 motor strength present throughout Extrem: Other: Right proximal medial thigh with reproducible tenderness. No rash/erythema or warmth. No ecchymosis. Pain elicited with external rotation of hip. N eurovascular intact distally General: Yes normal to inspection Course Course Course Narrative: -1133--UA with blood, small leuk esterase and wbc's however 6-10 epithelials, contaminated, will wait on antibiotic treatment until culture results Results discussed with patient including worrisome signs and symptoms and strict return precautions, and when to return to the emergency department. They verbalized understanding and feel safe for discharge at this time. Medications Administered Discontinued Medications Generic Name Dose Route Start Last Admin Trade Name Freq PRN Reason Stop Dose Admin Cyclobenzaprine HCl 5 mg 07/31/23 11:05 07/31/23 11:29 Cyclobenzaprine Hcl 5 Mg Tablet PO 07/31/23 11:06 5 mg ONCE ONE Administration Ketorolac Tromethamine 30 mg 07/31/23 11:05 07/31/23 11:29 Ketorolac Tromethamine 30 Mg/Ml Vial IM 07/31/23 11:06 30 mg ONCE ONE Administration Lidocaine 1 patch 07/31/23 11:05 07/31/23 11:29 Lidocaine 4 % Patch Adh..Patch TRANSDERMA 07/31/23 11:06 1 patch ONCE ONE Administration Protocol Medical Decision Making Medical Decision Making [facility] Narrative: 48-year-old female with a past medical history of abnormal uterine bleeding, tendinitis, presenting to the ED complaining of right upper leg/inner thigh pain since yesterday. On exam vital signs stable, NAD, nontoxic appearing, physical exam as noted above with reproducible right proximal medial thigh tenderness with pain elicited with external rotation. Concern for MSK pain/strain. Low suspicion for UTI/pyelo, ovarian torsion/cyst, appendicitis, no evidence of hernia Plan: UA, urine , pain control Please refer to course for remaining clinical decision making, interpretation of labs/imaging results, and discussions with consultants and/or family members. Differential Diagnosis Differential Diagnoses: The differential diagnosis associated with the presentation includes As above Admission/Observation Consideration of admission/observation: Escalation of care including admission/observation considered Lab Data MDM Lab Attestation statement: I reviewed the patient's lab results. Labs: Lab Results 07/31/23 Range/Units 11:06 Urine Color Yellow Urine Appearance Clear Urine pH 6.0 (5.0-9.0) Ur Specific [place] 1.025 (1.005-1.025) Urine Protein Negative (Neg-Trace) mg/dL Urine Glucose (UA) Negative (Negative) mg/dL Urine Ketones Trace (Negative) mg/dL Urine Blood Small (1+) H (Negative) Urine Nitrite Negative (Negative) Ur Leukocyte Esterase Small (1+) H (Negative) Urine RBC 6-10 H (0-2) /HPF Urine WBC 6-10 H (0-5) /HPF Ur Squamous Epith Cells 6-10 (0-2) /HPF Urine Bacteria Trace (None Seen) Hyaline Casts 0-2 (0-2) /LPF Urine Test NEGATIVE (NEGATIVE) Radiology Impression Discussion of test interpretation with radiology: I have reviewed the radiologist's reading. External Record Review External record reviewed: Inpatient record, Office record, Outpatient record, Prior outpatient labs, Prior outpatient radiology, Primary care record and Outside ED record Tests considered The following testing was considered but not selected: As above Prescription Management I considered prescription management with: Pain Medication Discharge Plan Discharge Clinical Impression: Groin strain Patient Disposition: Home, Self-Care Instructions: Groin Strain (ED) Additional Instructions: Please follow-up with your doctor Your pain is likely musculoskeletal Flexeril is a muscle relaxer, take at night as it makes you drowsy, do not drive, drink alcohol, or operate machinery while taking it Naproxen as an anti-inflammatory / pain medication, take with food Lidoderm patches are numbing patches, apply to painful area In addition take Tylenol at home If symptoms persist or worsen, pain becomes unbearable, you developed urinary retention or incontinence, or weakness return to the ED Por favor yanira un seguimiento con santana m?dico. Es probable que santana dolor sea musculoesquel?james. Flexeril es un relajante muscular, t?butt por la noche ya que produce somno lencia, no conduzca, madeline alcohol ni opere maquinaria mientras lo luis manuel. Naproxeno celi antiinflamatorio/analg?sico, arian con alimentos Los parches de Lidoderm son parches adormecedores, se aplican en el ?milla dolorida. Adem?s, tome Tylenol en casa. Si los s?ntomas persisten o empeoran, el dolor se vuelve insoportable, usted desarrolla retenci?n urinaria o incontinencia, o debilidad, regrese al servicio de urgencias. Prescriptions: New acetaminophen [Tylenol Extra Strength] 500 mg tablet 500 mg PO Q6H PRN (Reason: fever or pain) Qty: 14 0RF lidocaine [Lidoderm] 5 % adhesive patch,medicated 1 patch topical DAILY MDD remove after 12 hours PRN (Reason: pain) Qty: 30 0RF Rx Instructions: leave on most painful area for up to 12 hrs naproxen 500 mg tablet 500 mg PO BID PRN (Reason: pain) 10 Days Qty: 20 0RF cyclobenzaprine 5 mg tablet 5 mg PO Q8H PRN (Reason: pain (scale score 7-10)) 5 Days Qty: 14 0RF No Action Tylenol bisacodyl [Dulcolax (bisacodyl)] 5 mg tablet,delayed release (DR/EC) 10 mg PO ONCE 1 Days Qty: 2 0RF Rx Instructions: take 2 tabs at noon the day before your colonoscopy polyethylene glycol 3350 [Miralax] 17 gram/dose powder 238 g PO ONCE Qty: 238 0RF Rx Instructions: As directed by gastroenterology department at [facility] Referrals: [facility] [Primary Care Provider] - 5 days Stand Alone Forms: Work/School Release Interventions: ED Discharge Assessment Last Done: 07/31/23 11:49 Discharge Date/Time: 07/31/23 11:49 Print Language: Greenlandic
[2023-07-31 11:11] LABS: Appearance Urine Clear; Color Urine Yellow; Glucose Urine UA Negative (Negative); Leukocyte Esterase Urine Small (1+) (Negative); Nitrite Urine Negative (Negative); Specific Gravity - Urine 1.025 (1.005-1.025); UMIC TRIGGER UACC YES; Urine Blood Small (1+) (Negative); Urine Ketones Trace mg/dL (Negative); Urine Protein Negative (Neg-Trace)
[2023-07-31 11:12] LABS: UPreg QC Valid YES; Urine Pregnancy NEGATIVE (NEGATIVE)
[2023-07-31 11:13] LABS: Bacteria Urine Trace (None Seen); Hyaline Casts Urine 0-2 /LPF (0-2); UACC Culture Trigger YES
[2023-07-31] MEDS: Ketorolac Tromethamine 30 MG/ML VIAL IM (11:29)
[2023-07-31] MEDS: Cyclobenzaprine HCl 5 MG TABLET PO (11:29)
[2023-07-31] MEDS: Lidocaine 4 % Patch ADH..PATCH 1 PATCH TRANSDERMA (11:29)
== END 2023-07-31 11:49 | disposition home or self-care (01) ==
PROVIDERS: Physician Assistant; Emergency Provider Emergency Medicine
DX: S39.011A Strain of muscle, fascia and tendon of abdomen, initial encounter (principal); X58.XXXA Exposure to other specified factors, initial encounter; Y93.9 Activity, unspecified; Y92.9 Unspecified place or not applicable; Y99.8 Other external cause status; Z79.899 Other long term (current) drug therapy
CPT/HCPCS: 81001; 81025; 87086; 96372; 99284; J1885

== ENCOUNTER 2023-11-06 08:42 | Outpatient (REF) | payer MEDICAID, SELFPAY ==
--- NOTE | ~2023-11-06 | MM_ITS ---
EXAMINATION: MM DIAGNOSTIC DIGITAL BREAST TOMOSYNTHESIS, BILATERAL US BREAST LIMITED, RIGHT MAMMOGRAPHY: CLINICAL INFORMATION: Superiorly located right breast pain COMPARISON: Mammography: This study is compared with prior mammograms dating back to 2019. TECHNIQUE: Digital breast tomosynthesis is performed in both the craniocaudal and mediolateral oblique views along with computer-aided detection (CAD). Synthesized 2D images are generated from the tomosynthesis. FINDINGS: There are scattered areas of fibroglandular density (ACR BI-RADS breast composition Category b). There are no significant masses, abnormal calcifications, or other abnormalities. ULTRASOUND: CLINICAL INFORMATION: Superiorly located right breast pain. COMPARISON: None TECHNIQUE: Targeted sonographic evaluation was performed using a high frequency linear transducer. Selected archived documentation. FINDINGS: RIGHT BREAST: Sonography of the superior aspect of the right breast is normal. MM/MM tomosynthesis diagnostic BI IMPRESSION: There are no significant changes from prior study. OVERALL ASSESSMENT: Mammography: BI-RADS 1 - Negative Ultrasound: BI-RADS 1 - Negative RECOMMENDATION: 1. Patient should be managed based on the clinical impression. 2. Otherwise, routine annual screening mammography. Results were provided to the patient at time of visit by the technologist. This patient's information was entered into a reminder system with a target due date for their next mammogram.
== END 2023-11-06 08:43 | disposition home or self-care (01) ==
LOC: HO.MAMMO 08:42
PROVIDERS: PCP General Practice; Visit Provider General Practice
DX: N64.4 Mastodynia (principal)
CPT/HCPCS: 76642; 77062; 77066

== ENCOUNTER → 2023-11-06 09:00 | Outpatient (BNV) | payer MEDICAID, SELFPAY | PROVIDERS: PCP General Practice; Visit Provider Radiology Diagnostic Radiology | DX: N64.4 Mastodynia (principal) | CPT/HCPCS: 76642; 77062; 77066 ==

== ENCOUNTER 2024-03-06 10:39 | Outpatient (REF) | payer MEDICAID, SELFPAY ==
[2024-03-06 11:26] LABS: MANUAL DIFF FLAG NO
[2024-03-06 11:37] LABS: Basophils Percent Auto 0.6 % (0-2); Eosinophils Absolute Auto 0.1 X10*3/uL (0.0-0.4); Eosinophils Percent Auto 1.7 % (0-4); Estimated Average Glucose 128 mg/dL; Hemoglobin 13.7 g/dl (12.0-16.0); Hemoglobin A1c % 6.1 % (<6.0); Imm Gran Abs Auto 0.01 X10*3/uL (0.00-0.03); Imm Gran Pct Auto 0.3 % (0.0-0.4); Lymphocytes Absolute Auto 2.1 X10*3/uL (1.2-4.9); Lymphocytes Percent Auto 58.2 % (20-40); Mean Corpuscular HGB Conc 31.9 g/dl (31.0-35.0); Mean Corpuscular Hemoglobin 26.9 pg (27.0-33.0); Mean Corpuscular Volume 84.5 fL (80.0-98.0); Mean Platelet Volume 10.9 fL (9.4-12.3); Monocytes Absolute Auto 0.3 X10*3/uL (0.1-1.2); Monocytes Percent Auto 7.8 % (2-11); Neutrophils Absolute Auto 1.1 x10*3/uL (2.0-8.3); Neutrophils Percent Auto 31.4 % (45-73); Platelet Count 175 X10*3/uL (160-400); Red Blood Count 5.09 X10*6/uL (4.20-5.50); Red Cell Distribution Width 14.3 % (11.0-16.0); White Blood Count 3.6 X10*3/uL (4.8-10.8)
[2024-03-06 12:30] LABS: HBsAGNum1 0.26 S/CO (0.00-0.99); HIV AB/AG Nonreactive (Nonreactive); HIV Num 1 0.05 S/CO (0.00-0.99); Hepatitis B Core Antibody Nonreactive (Nonreactive); Hepatitis B Surface Antigen Negative (Negative); ~Hepatitis B Surface Antibody REACTIVE (Nonreactive)
[2024-03-06 12:33] LABS: Alanine Aminotransferase 21 U/L (0-31); Albumin Level 4.1 g/dL (3.5-5.0); Alkaline Phosphatase 110 U/L (39-117); Anion Gap 12 (12-20); Aspartate Amino Transferase 16 U/L (5-31); Bilirubin Total 0.5 mg/dL (0.0-1.0); Blood Urea Nitrogen 18 mg/dL (9-16); Calcium 9.9 mg/dL (8.4-10.2); Carbon Dioxide 26 mmol/L (22-29); Chloride 109 mmol/L (96-108); Cholesterol 205 mg/dL (<200); Estimated Glomerular Filt Rate > 60; Glucose Random 100 mg/dL (60-115); HDL Cholesterol 58 mg/dL (>40); LDL Cholesterol Calculated 138 mg/dL (<100); Potassium 4.3 mmol/L (3.3-5.1); Sodium 143 mmol/L (135-145); Total Protein 8.1 g/dL (6.5-8.0); Triglycerides 48 mg/dL (<150)
[2024-03-06 12:39] LABS: TSH reflex Free T4 0.92 uIU/mL (0.32-4.0)
[2024-03-06 13:29] LABS: CT PCR NOT DETECTED (Not Detect.); NG PCR NOT DETECTED (Not Detect.)
[2024-03-07 22:38] LABS: Follicle Stimulating Hormone 33.3 mIU/mL
[2024-03-08 14:43] LABS: RPR Rapid Plasma Reagin NON-REACTIVE (NON-REACTIVE)
[2024-03-09 13:43] LABS: HCV Log PCR <1.18 NOT DETECTED Log IU/mL (NOT DETECTED); HepC Viral Load <15 NOT DETECTED IU/mL (NOT DETECTED)
== END 2024-03-06 10:40 | disposition home or self-care (01) ==
LOC: HO.HHCL 10:39
PROVIDERS: Visit Provider Registered Nurse
DX: Z00.00 Encounter for general adult medical examination without abnormal findings (principal); R23.2 Flushing
CPT/HCPCS: 36415; 80053; 80061; 83001; 83036; 84443; 85025; 86592; 86704; 86706; 87340; 87389; 87491; 87522; 87591

== ENCOUNTER 2024-04-01 10:46 | Outpatient (REF) | payer MEDICAID, SELFPAY ==
[2024-04-01 13:26] LABS: MANUAL DIFF FLAG NO
[2024-04-01 13:33] LABS: Basophils Percent Auto 0.8 % (0-2); Hematocrit 43.1 % (37.0-47.0); Imm Gran Abs Auto 0.01 X10*3/uL (0.00-0.03); Imm Gran Pct Auto 0.3 % (0.0-0.4); Lymphocytes Absolute Auto 2.1 X10*3/uL (1.2-4.9); Lymphocytes Percent Auto 53.6 % (20-40); Mean Corpuscular HGB Conc 32.5 g/dl (31.0-35.0); Mean Corpuscular Hemoglobin 27.5 pg (27.0-33.0); Mean Corpuscular Volume 84.5 fL (80.0-98.0); Mean Platelet Volume 11.2 fL (9.4-12.3); Monocytes Absolute Auto 0.3 X10*3/uL (0.1-1.2); Monocytes Percent Auto 7.7 % (2-11); Neutrophils Absolute Auto 1.4 x10*3/uL (2.0-8.3); Neutrophils Percent Auto 36.6 % (45-73); Platelet Count 162 X10*3/uL (160-400); Red Cell Distribution Width 15.6 % (11.0-16.0); White Blood Count 3.9 X10*3/uL (4.8-10.8)
== END 2024-04-01 10:47 | disposition home or self-care (01) ==
LOC: HO.HHCL 10:46
PROVIDERS: Visit Provider Registered Nurse
DX: D72.819 Decreased white blood cell count, unspecified (principal)
CPT/HCPCS: 85025

== ENCOUNTER 2024-04-03 16:48 | Outpatient (REF) | payer MEDICAID, SELFPAY ==
[2024-04-08 11:23] LABS: HPV mRNA E6/E7 Not Detected (Not Detected)
[2024-04-09 14:40] LABS: C. trachomatis RNA TMA NOT DETECTED; Trichomonas (NAAT) NOT DETECTED
[2024-04-09 14:41] LABS: N. gonorrhoeae RNA TMA NOT DETECTED
== END 2024-04-03 16:49 | disposition home or self-care (01) ==
LOC: HO.HHCLNP 16:48
PROVIDERS: Visit Provider Registered Nurse
DX: Z12.4 Encounter for screening for malignant neoplasm of cervix (principal)
CPT/HCPCS: 36415; 87491; 87591; 87624; 87661; 88175

== ENCOUNTER 2025-01-03 08:59 | Outpatient (REF) | payer OTHER, SELFPAY ==
--- OUTSIDE RECORDS SUMMARY | 2024-07-10 10:20 | XMS_ITS ---
Author Organization [facility] Address [address] [place] [id number] Care Team Providers Care Director Of Science Name Role Phone ANIL ALVARADO MD Primary Care Provider Unavaila Prasad Latham [phone] REASON FOR VISIT COLON SCREENING Encounters Encounter Location Date Provider Diagnosis [facility] [address] [place] [id number] 07/10/2024 Prasad Franklin Plan Of Treatment Next Appt Details Provider Name:Prasad Franklin , 02/28/2025 01:20:00 PM, [address], [address], [place], [phone], Progress Notes * VALDO ACOSTADOB:1974 (49 yo F)Acc No.[id number]:07/10/2024 Progress Notes Patient: VALDO CRUZ Provider: Gerhard Franklin MD :1975 A ge:49 Y S ex:Female Date:07/10/2024 Address:[address] [place], [place] [id number] Pcp:ANIL ALVARADO MD Subjective: * Chief Complaints: * 1 . COLON SCREENING. * Medical History: Objective: * Vitals: Assessment: Plan: * Treatment: * * The named appointment provid er may or may not be the originator of this progress note, and it is not deemed complete until electronically signed by the appointment provider. Sign off status: Pending * Provider: Gerhard Franklin MD Date: 0 07/10/2024 Generated for Freddy guo/Faevelyn/eTransmitting on: 0 01/03/2025 09:11 AM EDT
--- OUTSIDE RECORDS SUMMARY | 2025-01-03 09:12 | XMS_ITS | Clinical Summary ---
Author Organization [employer] Address [address] [place] [address] [address] [place] [address] Care Team Providers Care Vp Training Name Role Phone Mable Rossi MIKEL Primary Care Provider [phone] Allergies No known active allergies Medications No known medications Active Problems Problem Noted Date Diagnosed Date Other neutropenia 04/03/2024 Overview (04/03/2024): Lab Results Component Value Date WBC 3.9 (L) 04/01/2024 WBC 3.6 (L) 03/06/2024 RBC 5.10 04/01/2024 RBC 5.09 03/06/2024 NEUTABSAUTO 1.4 (L) 04/01/2024 NEUTABSAUTO 1.1 (L) 03/06/2024 Assessment & Plan (04/03/2024 6:43 PM EDT): - Improved, slightly below baseline - She is not taking any medications, no recent illness - Discussed options such as cont to monitor in 6-12 mo vs referral to Heme/Onc. Shared decision making to monitor labs in 6-12 months. Follow up precautions. Other hyperlipidemia 04/03/2024 Overview (04/03/2024): Lab Results Component Value Date CHOL 205 (H) 03/06/2024 TRIG 48 03/06/2024 HDL 58 03/06/2024 LDLCHOLCAL 138 (H) 03/06/2024 ASCVD risk: 1% Mar 2024 Plan: lifestyle modifications, not indicated for statin at this time -continue lifestyle modification Prediabetes 03/13/2024 Overview (04/03/2024): Lab Results Component Value Date HGBA1C 6.1 (H) 03/06/2024 -Lifestyle counseling reviewed - pt planning to add more exercise into her weekly schedule. Healthcare maintenance 03/06/2024 Overview (04/03/2024): Pap: Jun 2018 NILM HPV neg, completed 04/03/24. Mammo: 11/06/23 BIRADS 1 Colonoscopy: referred to GI on 03/06/24 (scheduled 07/10/24) Last PE: 03/06/24 Hep B immune 03/06/24 Abnormal uterine bleeding 03/06/2024 Overview (03/10/2024): Following with [facility] OBGYN EMB completed 09/16/22 at [facility] - Dr. Nelson for AUB. Path: chronic endometritis, background disordered proliferative endometrium, no atypia identified. Assessment & Plan (03/10/2024 7:30 PM EDT): -Current hot flashes and months in between menses most likely c/w premenopausal symptoms. Shared decision to check FSH. Cont following with specialist. Red flag/follow up symptoms reviewed. Subdeltoid bursitis of left shoulder joint 04/11 Overview (04/03/2024): MRI 10/15/21: IMPRESSION: Trace fluid in the subacromial subdeltoid bursa compatible with a mild bursitis. Completed physical therapy and was referred to Ortho Assessment & Plan (04/03/2024 6:47 PM EDT): Aggravated by repetitive motions such as folding clothes at work for extended periods of time or lifting objects. Reports she is able to function at work as long as has breaks from repetitive motions that aggravate symptoms. Letter generated 04/03/24. Resolved Problems Problem Noted Date Diagnosed Date Resolved Date Cholelithiasis without obstruction 10/30/2023 03/06/2024 Encounters Date Type Department Care Team Description 10/15/[address] [address] Mable Rossi FNP September recall 10/15/2024 Travel from Last 3 Months Immunizations Immunization Administration Dates Next Due Hep B, Unspecified 08/19/2015,05/25/2015, 015 Influenza Injectable Quadriv alant Preservative Free IIV4 MDCK 07/19/2017 Influenza injectable quadriv alent preservative free 05/02/2016,03/30/2015 Influenza, Unspecified 07/05/2012,05/05/2010 Tdap 04/11/2022,02/15/2011 Family History Medical History Relation Name Comments hermorroid Mother Relation Name Status Comments Mother Social History Tobacco Use Types Packs/Day Years Used Date Smoking Tobacco: Never Smokeless Tobacco: Never Tobacco Cessation:Counseling Given: Not Answered Alcohol Use Standard Drinks/Week Comments Never 0 (1 standard drink = 0.6 oz pur e alcohol) Depression Answer Date Recorded Patient Health Questionnaire-9 Score 4 03/10/2024 Patient Health Questionnaire-9 Score 4 03/10/2024 Last PHQ-9: Questionnaire Data Not on file 0 03/10/2024 Housing Stability Answer Date Recorded What is your housing situation today? I have [employer] dowd 04/24/[address] you li ve. Do you have problems with any of the following? None of the above 04/24/2023 Food Insecurity Answer Date Recorded Within the past 12 months, y ou worried that your food would run out before you got money to buy more: Never True 04/24/2023 Within the past 12 months,th e food you bought just didn't last and you didn't have enough money to get more: Never True Transportation Answer Date Recorded In the past 12 months, has l ack of transportation kept you from medical appts, meetings, work or from getting things needed for daily living? No 04/24/2023 Utilities Answer Date Recorded In the past 12 months, has t he electric, gas, oil or water company threatened to shut off services in your home? No 04/24/2023 Depression Answer Date Recorded Patient Health Questionnaire-2 Score 1 03/10/2024 Internet Access Answer Date Recorded Internet Access Q1 Yes 03/06/2024 Internet Access Q2 Not on file 03/06/2024 Comments Unknown Sex and Gender Information Value Date Recorded Sex Assigned at Female 04/25/2022 10:33 AM EDT Legal Sex Female 10:33 AM EDT Gender Identity Female 04/25/2022 10:33 AM EDT Sexual Orientation Straight 04/25/2022 10 :33 AM EDT Last Filed Vital Signs Vital Sign Reading Time Taken Comments Blood Pressure 135/81 04/03/2024 8:42 AM EDT Pulse 74 04/03/2024 8:42 AM EDT Temperature 36.2 C (97.1 F) 04/03/2024 8:42 AM EDT Respiratory Rate 20 04/03/2024 8:42 AM EDT Oxygen Saturation 98% 04/03/2024 8:42 AM EDT Inhaled Oxygen Concentration - - Weight 72.2 kg (159 lb 2 oz) 04/03/2024 8:42 AM EDT Height 148.9 cm (4' 10.63 ) 04/03/2024 8:42 AM E DT Body Mass Index 32.55 04/03/2024 8:42 AM EDT Plan of Treatment Health Maintenance Due Date Last Done Comments CT Colonography 1975 Colonoscopy 1975 Colorectal Cancer Screening 1975 FIT DNA/Cologuard 1977 FIT 1975 FOBT 1975 Sigmoidoscopy 1975 Disability Screening 1975 COVID-19 Vaccine (#1) 1982 Pneumococcal Vaccine: Pediatrics (0 to 5 Years) and At-Risk Patients (6 to 49) Years (1 of 2 - PCV) 02/27/1996 Zoster Vaccines (1 of 2) 02/27/1996 Dental Oral Exam 01/19/2022 07/21/2021 Dental Prophylaxis 02/07/2022 08/09/2021 Dental X-Ray: Bitewings 07/22/2022 07/21/2021, 02/17 Dental X-Ray: Full Mouth 07/22/2024 07/21/2021 Mammogram 11/05/2024 11/06/2023, 10/24, 07/25/2022, Additional history exists Influenza Vaccine (#1) 2025 8, 05/02/2016, 03/30/2015, Additional history exists Alcohol/Substance Use Screening 03/06/2025 03/06/2024 Diabetes: Hemoglobin A1C 03/06/2025 024, 04/18/2022, 10/14/2020 SDOH Screening 03/06/2025 03/06/2024 Depression Screening 03/10/2025 03/10/2024, 03/10/20 Family Planning (PISQ) 03/10/2025 03/10/2024 Tobacco Screening 04/03/2025 04/03/2024 Cervical Cancer Screening 04/03/2029 HPV/Cotest 04/03/2029 04/03/2024, 07/12/2018 Pap Smear 04/03/2029 04/03/2024, 08/24, 09/06/2022, Additional history exists DTaP/Tdap/Td Vaccines (3 - Td or Tdap) 04/11/2032 04/11/2022, 02/15/2011 RSV Patients and Patients Aged 60 years or older (1 - 1-dose 75+ series) 02/27/2052 Hepatitis B Vaccines Completed 08/19/2015, 05/25/2015, 02/06/2015 HIV Screening Completed 03/06/2024 Hepatitis C Screening Completed 03/06/2024 HIB Vaccines Aged Out No longer eligi ble based on patient's age to complete this topic HPV Vaccines Aged Out No longer eligi ble based on patient's age to complete this topic Hepatitis A Vaccines Aged Out No long er eligible based on patient's age to complete this topic IPV Vaccines Aged Out No longer eligi ble based on patient's age to complete this topic Meningococcal B Vaccine Aged Out No l onger eligible based on patient's age to complete this topic Meningococcal Vaccine Aged Out No juvenal heath eligible based on patient's age to complete this topic RSV under 20 months Aged Out No longe r eligible based on patient's age to complete this topic Rotavirus Vaccines Aged Out No longer eligible based on patient's age to complete this topic Procedures Procedure Name Priority Date/Time Associated Diagnosis Comments THINPREP IMAGING PAP AND HPV MRNA E6/E7 Routine 04/03/2024 9:03 AM EDT HIV 1/2 ANTIGEN/ANTIBODY, FOURTH GENERATION W/RFL Routine 03/06/2024 10:46 AM EDT Healthcare maintenance HEMOGLOBIN A1C Routine 03/06/2024 10:46 AM EDT Healthcare maintenance HEPATITIS C VIRAL RNA, QUANTITATIVE, REAL-TIME PCR Routine 03/06/2024 10:36 AM EDT Healthcare maintenance BI MAMMOGRAM DIAGNOSTIC TOMOSYNTHESIS BILATERAL Routine 11/06/2023 9:06 AM EDT PROPHYLAXIS - ADULT Routine 08/09/2021 1 2:00 AM EST INTRAORAL - COMPLETE SERIES OF RADIOGRAPHIC IMAGES Routine 07/21/2021 12:00 AM EST COMPREHENSIVE ORAL EVALUATION - NEW OR ESTABLISHED PATIENT Routine 07/21/2021 12:00 AM EST from Last 3 Months or Most Recently Relevant to Health Maintenance Results * ThinPrep Imaging Pap and HPV mRNA E6/E7 (04/03/2024 9:03 AM EDT) HPV nRNA E6/E7 Not Detected Not Detected [facility] Comment:Methodology: Transcr iption-Mediated AmplificationThis assay detects E6/E7 viral messenger RNA (mRNA) from 14high-risk HPV types (16,18,31,33,35,39,45,51,52,56,58,59,66,68).Cervical sources are required for HPV testing.If a vaginal source from a patient who has had atotal hysterectomy with removal of cervix wassubmitted, please contact the testing laboratoryfor alternative testing options.For additional information, please refer tohttp://education.RolePoint/faq/MCR009q4(This link if provided for information/educational purposes only.)THIS TEST WAS PERFORMED AT:[employer] [place] [phone] MENDOZA MD SOURCE: SEE NOTE [facility] Comment:Cervix Report Status: TNP [facility] Clinical Information: SEE NOTE [facility] Comment:None given LMP: SEE NOTE [facility] Comment:NONE GIVEN Prev. PAP: SEE NOTE [facility] Comment:NONE GIVEN Prev. BX: SEE NOTE [facility] Comment:NONE GIVEN Statement Of Adequacy: SEE NOTE [facility] Comment:Satisfactory for ethan luation.Endocervical/transformation zone componentpresent. General Categorization: [facility] Interpretation/Result: SEE NOTE [facility] Comment:Cytology Results: Ne gative for intraepitheliallesion or malignancy. Cytology Comment SEE NOTE [facility] Comment:This Pap test has be en evaluated with computerassisted technology. Vocational Training Instructor: SEE NOTE [facility] Comment:DMM, CT(ASCP)CT scre ening location: [address] [address] Review Vocational Training Instructor: [facility] Pathologist [facility] PAP Infection [facility] See Note SEE NOTE [facility] Comment:EXPLANATORY NOTE:The Pap is a screening test for cervical cancer. It isnot a diagnostic test and is subject to false negativeand false positive results. It is most reliable when asatisfactory sample, regularly obtained, is submittedwith relevant clinical findings and history, and whenthe Pap result is evaluated along with historic andcurrent clinical information. 04/03/2024 9:03 AM EDT 04/03/2024 4:49 PM EDT Narrative [facility] - 04/09/2024 2:39 PM EDT SEE SCANNED RESULTS IN EMR us Mable Rossi [facility] PATHOLOGY ORDERABLES Final Result [facility] [address] [place] [phone] * HIV-1/2 Antigen and Antibodies, Fourth Generation, with Reflexes (03/06/2024 10:46 AM EDT) HIV AB/AG Nonreactive Nonreactive [facility] Comment:HIV-1 p24 Ag and/or HIV-1/HIV-2 Ab not detected.A test result that is nonreactive does not exclude thepossibility of exposure to or infection with HIV-1 and/orHIV-2. Nonreactive results in this assay for individualswith prior exposure to HIV-1 and/or HIV-2 may be due toantigen and antibody levels that are below the limit ofdetection of this assay.The Returbo HIV Ag/Ab Combo assay result andsupplemental assay results should be interpreted inconjunction with the patient's clinical presentation,history and other laboratory results. If the results areinconsistent with clinical evidence, additional testing issuggested to confirm the result. Blood Venous blood specimen / Unknown 03/06/2024 10:46 AM EDT 03/06/2024 11:19 AM EDT Mable Rossi [facility] BLOOD ORDERABLES Final Res ult Performing Organization Address [facility] Co de Phone Number [facility] [address] [place] [phone] * (ABNORMAL) Hemoglobin A1c (03/06/2024 10:46 AM EDT) Hemoglobin A1c 6.1(H) <6.0 % [facility] Comment:Hemoglobin A1C Refer ence Range Adults: 4.8 - 6.0 % Non diabetic: < 6.0 % Goal: < 7.0 %Additional Action Suggested: > 8.0 %Note: Hemoglobin A1c results are invalid for patients with abnormal amounts of HbF. Blood transfusions may impact the HbA1c concentration in the patient sample. Estimated Average Glucose 128 mg/dL [facility] Comment:eAG = Estimated ave rage glucose which is %A1C expressed asaverage glucose, using the formula of the [id number] Glucose study (ADAG), Diabetes Care, Vol.31,#8,Aug. 2007 Blood Venous blood specimen / Unknown 03/06/2024 10:46 AM EDT 03/06/2024 11:19 AM EDT Mable Rossi [facility] BLOOD ORDERABLES Final Res ult Performing Organization Address [facility] Co de Phone Number [facility] [address] [place] [phone] * Hepatitis C Viral RNA, Quantitative, Real-Time PCR (03/06/2024 10:36 AM EDT) Hepatitis C Viral Load <15 NOT DETECTED NOT DETECTED IU/mL [facility] HCV Log PCR <1.18 NOT DETECTED NOT DETECTED Log IU/mL [facility] Comment:For additional infor bro, please refer tohttp://education.RolePoint/faq/BJV33v4(This link is being provided for informational/educational purposes only.)THIS TEST WAS PERFORMED AT:[facility] [place] [phone] MENDOZA MD Blood 03/06/2024 10:3 6 AM EDT 03/06/2024 11:19 AM EDT us Mable Rossi [facility] LAB BLOOD ORDERABLES Final Res ult [facility] [address] [place] [phone] * BI Mammogram Diagnostic Tomosynthesis Bilateral (11/06/2023 9:06 AM EDT) Anatomical Region Laterality Modality Breast Bilateral Mammography 11/06/2023 9:06 AM EDT Narrative 11/13/2023 7:25 AM EDT [address] [place] [address] Mammography Report Signed Patient: Angela Silva MR#: [id number] : 1975 Acct:[id number] Age/Sex: 48 / F ADM Date: 11/06/23 Loc: HO.MAMMO Attending Dr: Elsy Car MD Ordering Physician: Elsy Car Results: 1Negative Date of Service: 11/06/23 Follow Up: 1 Year From Orig inal Mammogram Procedure(s): MM tomosynthesis diagnostic BI Accession Number(s): [id number] cc: Elsy Car EXAMINATION: MM DIAGNOSTIC DIGITAL BREAST TOMOSYNTHESIS, BILATERAL US BREAST LIMITED, RIGHT MAMMOGRAPHY: CLINICAL INFORMATION: Superiorly located right breast pain COMPARISON: Mammography: This study is compared with prior mammograms dating back to 2019. TECHNIQUE: Digital breast tomosynthesis is performed in both the craniocaudal and mediolateral oblique views along with computer-aided detection (CAD). Synthesized 2D images are generated from the tomosynthesis. FINDINGS: There are scattered areas of fibroglandular density (ACR BI-RADS breast composition Category b). There are no significant masses, abnormal calcifications, or other abnormalities. ULTRASOUND: CLINICAL INFORMATION: Superiorly located right breast pain. COMPARISON: None TECHNIQUE: Targeted sonographic evaluation was performed using a high frequency linear transducer. Selected archived documentation. FINDINGS: RIGHT BREAST: Sonography of the superior aspect of the right breast is normal. MM/MM tomosynthesis diagnostic BI IMPRESSION: There are no significant changes from prior study. OVERALL ASSESSMENT: Mammography: BI-RADS 1 - Negative Ultrasound: BI-RADS 1 - Negative RECOMMENDATION: 1. Patient should be managed based on the clinical impression. 2. Otherwise, routine annual screening mammography. Results were provided to the patient at time of visit by the technologist. This patient's information was entered into a reminder system with a target due date for their next mammogram. Dictated By: Jenn Garner MD Signed By: <Electronically signed by Jenn Garner MD in OV> 11/13/23 0721 DD/ 0906 TD/TT: Construction Project Mgr: Procedure Note Donotuseinterpreter, Image - 11/13/2023 [facility] [address] [place], [place] [address] Mammography Report Signed Patient: Angela Silva#: [id number] : 1975Acct:[id number] Age/Sex: 48 / FADM Date: 11/06/23 Loc: [facility] Attending Dr: Elsy Car MD Ordering Physician: Phillip Carults: 1Negative Date of Service: 11/06/23Follow Up: 1 Year From Orig inal Mammogram Procedure(s): MM tomosynthesis diagnostic BI Accession Number(s): [id number] cc: Elsy Car EXAMINATION: MM DIAGNOSTIC DIGITAL BREAST TOMOSYNTHESIS, BILATERAL US BREAST LIMITED, RIGHT MAMMOGRAPHY: CLINICAL INFORMATION: Superiorly located right breast pain COMPARISON: Mammography: This study is compared with prior mammograms dating back to 2019. TECHNIQUE: Digital breast tomosynthesis is performed in both the craniocaudal and mediolateral oblique views along with computer-aided detection (CAD). Synthesized 2D images are generated from the tomosynthesis. FINDINGS: There are scattered areas of fibroglandular density (ACR BI-RADS breast composition Category b). There are no significant masses, abnormal calcifications, or other abnormalities. ULTRASOUND: CLINICAL INFORMATION: Superiorly located right breast pain. COMPARISON: None TECHNIQUE: Targeted sonographic evaluation was performed using a high frequency linear transducer. Selected archived documentation. FINDINGS: RIGHT BREAST: Sonography of the superior aspect of the right breast is normal. MM/MM tomosynthesis diagnostic BI IMPRESSION: There are no significant changes from prior study. OVERALL ASSESSMENT: Mammography: BI-RADS 1 - Negative Ultrasound: BI-RADS 1 - Negative RECOMMENDATION: 1. Patient should be managed based on the clinical impression. 2. Otherwise, routine annual screening mammography. Results were provided to the patient at time of visit by the technologist. This patient's information was entered into a reminder system with a target due date for their next mammogram. Dictated By: Jenn Garner MD Signed By: <Electronically signed by Jenn Garner MD in OV> 11/13/23 0721 DD/ 0906 TD/TT: Construction Project Mgr: Elsy Car MD IMG BI PROCEDURES Edited Resul t - Final from Last 3 Months or Most Recently Relevant to Health Maintenance Insurance [facility] ST[facility] AD[facility] Care Teams Vp Training Relationship Specialty Start Date End Date Mable Rossi FNP [address] [place] [address] PCP - General Family Medicine 02/23/22
== END 2025-01-03 09:00 | disposition home or self-care (01) ==
LOC: HO.MAMMO 08:59
PROVIDERS: PCP General Practice; Visit Provider General Practice
DX: Z12.31 Encounter for screening mammogram for malignant neoplasm of breast (principal)
CPT/HCPCS: 77063; 77067

== ENCOUNTER → 2025-01-03 09:45 | Outpatient (BNV) | payer OTHER, SELFPAY | PROVIDERS: PCP General Practice; Visit Provider Internal Medicine | DX: Z12.31 Encounter for screening mammogram for malignant neoplasm of breast (principal) | CPT/HCPCS: 77063; 77067 ==